=== PATIENT | male | born 1950 | race Caucasian/White ===

== ENCOUNTER 2019-04-27 13:43 | Emergency (ER) | payer MEDICARE, BC ==
[2019-04-27 13:48] VITALS: Wt 95.5 kg
[2019-04-27] MEDS ORDERED: SYNTHROID125 MCG PO (13:49)
[2019-04-27] MEDS ORDERED: FLOMAX0.4 MG PO (13:49)
[2019-04-27] MEDS ORDERED: BAYER CHEWABLE81 MG PO (13:50)
[2019-04-27 14:34] LABS: BASOPHILS 0.6 % (0-2); HEMATOCRIT 38.9 % (42.0-54.0); HEMOGLOBIN 13.6 g/dL (13.5-17.5); IMMATURE GRANULOCYTES 0.2 % (0-5); LYMPHOCYTES 10.1 % (15-50); MCH 31.6 pg (26.0-34.0); MCV 90.5 fL (80.0-100.0); MEAN PLATELET VOLUME 9.9 fL (7.4-10.4); MONOCYTES 5.1 % (2-11); PLATELET COUNT 279 10x3/uL (130-400); RDW 13.3 % (11.5-14.5); WBC 8.4 10x3/uL (4.8-10.8)
[2019-04-27 14:35] LABS: ALBUMIN 3.7 g/dL (3.4-5.0); ALKALINE PHOSPHATASE 59 U/L (46-116); ALT (SGPT) 20 U/L (10-68); BILIRUBIN - TOTAL 0.49 mg/dL (0.2-1.3); CALC OSMOLALITY 288 mosm/kg (275-300); CALCIUM 8.5 mg/dL (8.5-10.1); CARBON DIOXIDE 31.3 mmol/L (21.0-32.0); CHLORIDE - SERUM 105 mmol/L (98-107); CREATININE - SERUM 1.2 mg/dL (0.6-1.3); GLUCOSE 141 mg/dL (74-106); POTASSIUM - SERUM 3.9 mmol/L (3.5-5.1); PROTEIN - SERUM 7.5 g/dL (6.4-8.2); SODIUM 143 mmol/L (136-145); UREA NITROGEN 18 mg/dL (7-18); eGFR NON AFRICAN AMERICAN 63 mL/min (90-120)
[2019-04-27 14:45] LABS: TROPONIN-I < 0.017 ng/mL (0.000-0.060)
[2019-04-27] MEDS ORDERED: ANTIVERT12.5 MG PO (15:14)
[2019-04-27 15:22] VITALS: BP 162/81
== END 2019-04-27 15:23 | disposition home or self-care (01) ==
LOC: D.ER 13:43
PROVIDERS: Emergency Medicine
DX: R42 Dizziness and giddiness (principal)

== ENCOUNTER → 2020-11-05 09:30 | Outpatient (CLI) | payer MEDICARE, BC ==
[~2020-11-05 09:30] MED LIST: ANTIVERT12.5 MG PO; BAYER CHEWABLE81 MG PO; FLOMAX0.4 MG PO; SYNTHROID125 MCG PO
== END | disposition home or self-care (01) ==
LOC: D.MAMMO 09:30
PROVIDERS: ATTEND Family Medicine
DX: N63.21 Unspecified lump in the left breast, upper outer quadrant (principal); N63.23 Unspecified lump in the left breast, lower outer quadrant